=== PATIENT | female | born 1970 | race Hispanic/Latino ===

== ENCOUNTER 2016-09-24 08:25 | Emergency (ER) | payer OTHER ==
[2016-09-24] MEDS ORDERED: ALBUTEROL SULFATE/IPRATROPIUM 3 ML NEBU IH ONE ×2 (09:02→09:10)
[2016-09-24] MEDS ORDERED: ALBUTEROL SULFATE 2.5 MG/0.5 ML VIAL.NEB IH ONE (09:04)
[2016-09-24 09:19] LABS: Hematocrit 44.4 % (37.0-47.0); Hemoglobin 15.2 gm/dL (12.5-16.0); Mean Cell Volume 83.8 fl (78-100); Mean Corpuscular Hemoglobin 28.7 pg (27-31); Mean Corpuscular Hgb Conc 34.2 g/dl (32-36); Mean Platelet Volume 9.2 fl (6.0-9.5); Neutrophil % 66.6 % (42-75.0); Platelet Count 414 K/mm3 (150-450); White Blood Count 10.5 K/mm3 (4.0-10.5)
--- OUTSIDE RECORDS SUMMARY | 2016-09-24 09:22 | XMS REPORT | Continuity of Care Document ---
:1970 Author Organization [facility] ([facility] Address [address] [place] [address] Phone [phone] Care Team Providers Name Role Phone Amanda Balderrama Primary Care Provider [phone] Source Comments This disclosure is being made pursuant to the Care Everywhere program, applicable federal and state laws, and may not contain all informaitonavailable regarding this patient.[facility] ([facility]) Active Allergies and Adverse Reactions No Known Allergies Current Medications Prescription Sig. Disp. Refills Start Date End Date Status amLODIPine 10 mg Take 10 mg by Active tablet mouth daily. budesonide-formoter Use 2 Puffs by Active ol (SYMBICORT) inhalation 2 80-4.5 times daily as mcg/Actuation needed. inhaler albuterol 90 Use 2 Puffs by Active mcg/Actuation inhalation inhaler every 6 hours as needed. LYZA 0.35 mg tablet 1 tablet daily. 06/13/2015 Active ciprofloxacin-dexam Instill 3 Drops 7.5 mL 0 11/07/2015 Active ethasone (CIPRODEX) into left ear 2 0.3-0.1 % otic times daily. suspension mycophenolate Take 3 tablets 120 tablet 11 06/20/2016 Active mofetil 500 mg (1,500 mg tablet total) by mouth 2 times daily. esomeprazole 40 mg Take 1 capsule 30 capsule 11 08/02/2016 Active EC capsule (40 mg total) by mouth daily. pantoprazole 20 mg Take 1 tablet 30 tablet 11 08/07/2016 Active EC tablet (20 mg total) by mouth daily. levoFLOXacin 500 mg Take 1 tablet 10 tablet 0 09/06/2016 Active tablet (500 mg total) by mouth daily. losartan 100 mg Take 100 mg by Discontinued tablet mouth daily. 7 Active Problems Problem Noted Date CAMILO positive 06/23/2015 Hypertension 05/23/2015 Obesity (BMI 30.0-34.9) 05/23/2015 ILD (interstitial lung disease) 05/23/2015 Most Recent Encounters Date Type Specialty Providers Description 09/16/2016 Telephone Maia Kumar, Chief Comp: Return Call [facility] 09/06/2016 [facility] Respiratory MasonSlick Michele, Dx: Shortness of breath Encounter Therapy Rand Posey MD [R06.02] (Primary Dx) Default, Other Billg - Defo 09/06/2016 Orders Only Maia Kumar, Dx: Pneumonia of both [employer] lower lobes due to infectious organism (Primary Dx) 09/05/2016 Telephone Maia Kumar, Chief Comp: Discuss [employer]OR Test Results 09/05/2016 Telephone Maia Kumar, Chief Comp: Discuss [employer] INS[employer]OR Test Results 09/05/2016 Telephone Maia Kumar, Chief Comp: Discuss [employer]OR Test Results 09/03/2016 Hospital Radiology Subj: Upcoming Appt Encounter Reminder 09/03/2016 Office Visit Pathology Maia Oropeza, Dx: On Cellcept therapy [employer] Lab Services, p 09/03/2016 Office Visit Darwin Urban Dx: ILD (interstitial MD Janice lung disease) (Primary Maia Oropeza, Dx) [employer]OR 09/03/2016 Telephone Maia Kumar, Chief Comp: Discuss [employer] INS[employer]OR Test Results 09/03/2016 Telephone Maia Kumar, Chief Comp: Need Prior [employer] INSPECTOR Authorization 09/03/2016 Telephone Maia Kumar G[employer]ING INSPECTOR 08/07/2016 Orders Only Maia Kumar, Dx: Gastroesophageal [employer] reflux disease, esophagitis presence not specified (Primary Dx) 08/05/2016 Telephone Maia Kumar Chief Comp: Other [employer] INSPECTOR 08/05/2016 Orders/Notes Maia Kumar, Dx: Gastroesophageal [employer]OR reflux disease, esophagitis presence not specified (Primary Dx) 08/05/2016 Telephone Darwin Urban, Chief Comp: Need Prior MD Janice Authorization 07/29/2016 Telephone [facility] Durairaj, Dx: ILD (interstitial Janice, MD lung disease) (Primary Dx) Immunizations Name Dates Previously Given Next Due Influenza, PF 02/21/2016 Pneumococcal Conjugate, PCV13 (Prevnar 13) 09/03/2016 Social History Tobacco Use Types Packs/Day Years Used Date Never Smoker Smokeless Tobacco: Never Used Last Filed Vital Signs Vital Sign Reading Time Taken Blood Pressure 97/70 09/06/2016 11:45 AM CDT Pulse 90 09/06/2016 11:45 AM CDT Temperature 37.4 C (99.3 F) 09/03/2016 1:36 PM CDT Respiratory Rate 16 09/03/2016 1:36 PM CDT Height 1.499 m (4' 11.02") 09/06/2016 9:28 AM CDT Weight 67 kg (147 lb 11.3 oz) 09/06/2016 9:28 AM CDT Body Mass Index 29.82 09/06/2016 9:28 AM CDT Oxygen Saturation 97% 09/06/2016 11:45 AM CDT Plan of Care Date Type Specialty Providers Description 10/04/2016 Appointment Respiratory Therapy Default, Other Billg Subj: Appointment - Defo Rescheduled [address] [place] [address] [phone] (Fax) 10/04/2016 Appointment Med Pulmonary Janice Urban MD [address] [place] [address] [phone] (Fax) Subj: Appointment Maia Oropeza ARNP [address] [place] [address] [phone] (Fax) Rescheduled 12/09/2016 Appointment Med Rheumatology Eduarda Wilkerson MD Subj: Appointment [address] [place] [address] [phone] (Fax) Health Maintenance Due Date Last Done Comments Hepatitis B Vaccine (1 of 3 - Primary Series) 1970 Tdap Vaccine 1981 Lipid Disorder Screening 1988 MMR Vaccine 1988 Td Vaccine 1988 Cervical Cancer Screening 2000 Mammogram 2010 Influenza Vaccine: Seasonal Completed 02/21/2016 Results from Last 3 Months CYTOLOGY NON-SENIOR SSIS DEVELOPER EXAM (09/06/2016 10:24 AM) Component Value Range Case Report Non-Bathroom Tiling Professional Cytopathology Case: [id number] Authorizing Provider:Keisha Banuelos MD Collected: 09/06/2016 10:24 AM Ordering Location: Pulmonary Diagnosis andRebouchraived: 09/06/2016 01:46 PM Intervention Pathologist: Jhon Barahona MD Specimen:Bronchoaveolar lavage Interpretation Bronchoalveolar Lavage (BAL):Pneumocytes and pulmonary macrophages. No viral inclusions seen. No fungal organisms seen on pap stain. No tumor cells identified I have personally reviewed this case and edited the report as necessary. Specimen Description 3 mL cloudy fluid Specimen Other - Bronchoaveolar lavage HISTOPLASMA ANTIGEN, BAL FLUID (09/06/2016 10:24 AM) Component Value Range Histoplasma Ag, BAL None Detected None Detected Specimen Bronchial Specimen Narrative Reference interval:None Detected Results reported as ng/mL in 0.4-19 ng/mL range Results above the limit of detection but below 0.4 ng/mL are reported as "Positive, Below the Limit of Quantification" Results above 19 ng/mL are reported as "Positive, Above the Limit of Quantification" This test was developed and its performance characteristics determined by [employer].It has not been cleared or approved by the FDA, however, FDA clearance or approval is not currentlyrequired for clinical use.The results are not intended to be used as the sole means for clinical diagnosis or patient management decisions. ASPERGILLUS GALACTOMANNAN ANTIGEN - BAL FLUID (09/06/2016 10:24 AM) Component Value Range Aspergillus Ag, BAL <0.500Comment: <0.5 index ADDITIONAL INFORMATION This is a qualitative test and the resulted index value is not indicative of disease severity.Serial testing is recommended for patients at high risk for invasive aspergillosis. Specimen Bronchial Specimen Narrative Test Performed by: [facility] - [address] [address] PNEUMOCYSTIS (PCP) ANTIGEN, DFA (09/06/2016 10:24 AM) Component Value Range Pneumocystis jirovecii (carinii) Antigen Not Detected Not Detected Specimen Culture - Bronchoaveolar lavage NOCARDIA CULTURE (09/06/2016 10:24 AM) Component Value Range Nocardia Culture Growth No nocardia isolated Specimen Culture - Bronchoaveolar lavage RESPIRATORY VIRUS PCR (09/06/2016 10:24 AM) Component Value Range Adenovirus Not Detected Not Detected Human [place]-Pneumovirus Not Detected Not Detected Influenza A Not Detected Not Detected Influenza B Not Detected Not detected H1N1 Influenza Not Detected Not Detected Parainfluenza 1 Virus Not Detected Not Detected Parainfluenza 2 Virus Not Detected Not Detected Parainfluenza 3 Virus Not Detected Not detected RSV A Not Detected Not Detected RSV B Not Detected Not Detected Specimen Other - Bronchoaveolar lavage Narrative Test Methodology:PCR amplification The performance characteristics of this test were determined by the [facility].It has not been cleared or approved by the U.S. Food and DrugAdministration (FDA). The FDA has determined that such clearance or approval is not necessary.This test is for clinical purposes.It should not be regarded as investigational or for research. The laboratory is certified under the Clinical Laboratory Improvement Amendments of 1988 (CLIA) as qualified to perform high complexity clinical laboratory testing. QUANTITATIVE AEROBIC CULTURE (09/06/2016 10:24 AM) Component Value Range Quantitative Aerobic Growth Mixed Valery (Oral)(A) Stain No organisms observed Stain Few PMN's Stain Cytospun preparation Specimen Culture - Bronchoaveolar lavage DIFFERENTIAL (09/03/2016 2:51 PM) Component Value Range % Neutrophils-Auto Diff 76.4 % Neutrophils-Auto Diff 04975(H) 5773-2699 /MM3 % Lymphocytes-Auto Diff 14.9 % Lymphocytes-Auto Diff 2630 875-3300 /MM3 % Monocytes-Auto Diff 6.3 % Monocytes-Auto Diff 1110(H) 130-860 /MM3 % Eosinophils-Auto Diff 1.5 % Eosinophils-Auto Diff 270 40-390 /MM3 % Basophils 0.3 % Basophils-Auto Diff 60 10-136 /MM3 % Immature Granulocytes-Auto Diff 0.6 % Immature Granulocytes-Auto Diff 100 /MM3 Specimen Whole Blood CBC (COMPLETE BLOOD COUNT) (09/03/2016 2:51 PM) Component Value Range WBC Count 17.6(H) 3.7-10.5 K/MM3 RBC Count 5.51(H) 4.00-5.20 M/MM3 Hemoglobin 16.1(H) 11.9-15.5 g/dL Hematocrit 46 35-47 % MCV (Mean Corpuscular Volume) 84 82-99 FL MCH (Mean Corpuscular Hemoglobin) 29 25-35 PG MCHC (Mean Corpuscular Hemoglobin Concentration) 35 32-36 % Platelet Count 447(H) 150-400 K/MM3 MPV (Mean Platelet Volume) 9.6 9.4-12.3 FL RBC Dist Width-STD 39.8 36.4-46.3 FL RBC Distrib Width 13.1 9.0-14.5 % Nucleated RBC 0 /100 WBC Specimen Whole Blood CHLORIDE (09/03/2016 2:51 PM) Component Value Range Chloride 97 95-107 mEq/L Specimen Blood BLOOD UREA NITROGEN (09/03/2016 2:51 PM) Component Value Range BUN 13 10-20 mg/dL Specimen Blood SODIUM (09/03/2016 2:51 PM) Component Value Range Sodium 137 135-145 mEq/L Specimen Blood POTASSIUM (09/03/2016 2:51 PM) Component Value Range Potassium 4.0 3.5-5.0 mEq/L Specimen Blood CO2 (09/03/2016 2:51 PM) Component Value Range CO2 26 22-29 mEq/L Anion Gap 14 <17 mEq/L Specimen Blood CALCIUM (09/03/2016 2:51 PM) Component Value Range Calcium 9.5 8.5-10.5 mg/dL Specimen Blood CBC WITH DIFFERENTIAL (09/03/2016 2:51 PM) Specimen Whole Blood Narrative The following orders were created for panel order CBC WITH DIFFERENTIAL. Procedure Abnormality Status --------- ------ CBC (COMPLETE BLOOD COUNT)[[id number]] AbnormalFinal result DIFFERENTIAL[[id number]] AbnormalFinal result Please view results for these tests on the individual orders. CREATININE (09/03/2016 2:51 PM) Component Value Range Creatinine 0.6Comment: 0.5-1.0 mg/dL Creatinine switched to enzymatic method on 08/21/2010.GFR equation switched to IDMS-traceable MDRD equation on 08/21/2010. Calculated GFR values are not valid in clinical settings where serum creatinine is changing. Calculated GFR >90 >60 mL/min/1.73 m2 Specimen Blood LIVER PANEL (09/03/2016 2:51 PM) Component Value Range Bilirubin Total 0.4 <=1.2 mg/dL AST 18Comment: 0-32 U/L Adult reference ranges updated on 03/09/13 at 830am ALT 11Comment: 0-33 U/L The upper limit of normal for alanine aminotransferase (ALT) reference ranges for adults is controversial with some authorities recommending limit as low as 30 U/L for males and 19 U/L for females. Th ere is increased incidence of subclinical liver disease (e.g., early steatohepatitis) in patients with ALT values in the range of 31-41 U/L for males and 20-33 U/L for females. ALT values should alway s be interpreted in conjunction with clinical history, physical examination findings, and, if applicable, data from other diagnostic tests. ALP 76 35-104 U/L GGT 33 5-36 U/L Albumin 4.3 3.4-4.8 g/dL Total Protein 8.4(H) 6.0-8.0 g/dL Specimen Blood
--- OUTSIDE RECORDS SUMMARY | 2016-09-24 09:22 | XMS REPORT | Summary of Care ---
:1970 Author Organization [facility] Address [address] [place] [address]- Care Team Providers Name Role Phone Amanda Balderrama Primary Care Physician Encounter Date(s): 06/05/16 - 06/05/16 [facility] [address] [place], [place] [address] Discharge Disposition: Discharged to Home or Self Care Attending Physician: Janice Urban MD Admitting Physician: Janice Urban MD Vital Signs No data available for this section Problem List No data available for this section Allergies, Adverse Reactions, Alerts No Known Medication Allergies Medications albuterol CFC free 90 mcg/inh inhalation aerosol 2 puff(s), Inhale, QID, PRN for wheezing, # 1 EA, 3 Refill(s), Start Date: 09/01 16:53:33 CDT, Pharmacy: [facility] [place], [place] Start Date: 09/01/14 Stop Date: 12/30/14 Status: Orderedalbuterol CFC free 90 mcg/inh inhalation aerosol 2 puff(s), Inhale, QID, PRN for wheezing, X 30 days, # 1 EA, 3 Refill(s), Start Date: 09/01/14 16:41:00 CDT Start Date: 09/01/14 Stop Date: 09/01/14 Status: CompletedamLODIPine 10 mg oral tablet 1 tab(s), Oral, Daily, 0 Refill(s), Start Date: 09/01/14 15:23:00 CDT Start Date: 09/01/14 Status: Ordereddoxycycline hyclate 100 mg oral tablet 1 tab(s), Oral, BID, # 14 tab(s), 0 Refill(s), Start Date: 09/28/15 16:07:00 CDT , Pharmacy: [facility], [place] Start Date: 09/28/15 Stop Date: 10/05/15 Status: Orderedmycophenolate mofetil 500 mg oral tablet 1 tab(s), Oral, Daily, 0 Refill(s), Start Date: 09/28/15 15:31:00 CDT Start Date: 09/28/15 Status: OrderedpredniSONE 20 mg oral tablet 1 tab(s), Oral, Daily, # 30 tab(s), 1 Refill(s), Start Date: 12/28/14 16:49:00 CDT, Pharmacy: [facility], [place] Start Date: 12/28/14 Stop Date: 03/02/15 Status: CompletedpredniSONE 20 mg oral tablet 1 tab(s), Oral, Daily, # 45 tab(s), 1 Refill(s), Start Date: 11/02/14 16:54:00 CDT, Pharmacy: [facility], [place] Start Date: 11/02/14 Stop Date: 12/28/14 Status: CompletedpredniSONE 20 mg oral tablet 1.5 tab(s), Oral, Daily, # 45 tab(s), 1 Refill(s), Start Date: 12/07/14 16:39: 00 CDT, Pharmacy: [facility], [place] Start Date: 12/07/14 Stop Date: 03/02/15 Status: CompletedSymbicort 80 mcg-4.5 mcg/inh inhalation aerosol 2 puff(s), Inhale, BID, # 10 gm, 0 Refill(s), Start Date: 02/01/15 9:58:02 CDT, samples given to patient (Rx), [id number], 02/12/16 Start Date: 02/01/15 Stop Date: 05/19/15 Status: CompletedSymbicort 80 mcg-4.5 mcg/inh inhalation aerosol 2 puff(s), Inhale, BID, # 10 gm, 0 Refill(s), Start Date: 11/02/14 16:54:00 CDT , Pharmacy: [facility], [place] Start Date: 11/02/14 Stop Date: 02/01/15 Status: CompletedSymbicort 80 mcg-4.5 mcg/inh inhalation aerosol 2 puff(s), Inhale, BID, # 1 EA, 5 Refill(s), Start Date: 05/19/15 16:37:14 PARENT TRAINER, Pharmacy: [facility] [place], [id number], 02/12/16 Start Date: 05/19/15 Stop Date: 11/15/15 Status: Ordered Results No data available for this section Immunizations Vaccine Date Refusal Reason influenza virus vaccine, inactivated1, 2 03/02/15 1Result Comment: Flu vaccine given IM to left deltoid. Tolerated well with no adverse reactions noted.2Early/Late Reason: Other : Procedures Procedure Date Related Diagnosis Body Site Flexible Bronchoscopy1 10/04/14 Flexible Bronchoscopy2 09/06/14 delivery left arm surgery 1auto-populated from documented surgical [id number] from documented surgical case Social History No data available for this section Assessment and Plan No data available for this section
[2016-09-24 09:33] LABS: Albumin * 3.5 gm/dl (3.4-5.0); Anion Gap 18.3 mmol/L (6.8-13.8); BUN/Creatinine Ratio 20.6 (9.0-21.6); Bilirubin, Total 0.5 mg/dL (0.0-1.1); Ca. Corrected For Albumin 9.1 mg/dL (8.4-10.2); Carbon Dioxide 23.6 mmol/L (24-32.6); Potassium 3.9 mmol/L (3.4-4.6); Total Protein 8.6 gm/dL (6.2-8.2)
[2016-09-24 10:42] VITALS: BP 119/86
--- NOTE | 2016-09-24 10:54 | ERNOTE ---
Date of Service: 09/24/16 Time Seen by Provider: 09/24/16 08:59 Stated Complaint: COUGH HX PNEUMONIA Presenting Symptoms:: cough Source: patient Exam Limitations: no limitations Immunizations: IMMUNIZATION HX Immunizations Up to Date No History of Influenza Vaccine Yes Hx Pneumococcal Vaccination Yes Allergies/Adverse Reactions: Allergies No Known Allergies Allergy (Unverified 09/23/12 15:53) Home Medications: HOME MEDICATIONS amLODIPine BESYLATE [Norvasc] 10 mg PO DAILY 09/23/12 [Last Taken Unknown] Albuterol Sulfate [Proair Respiclick] 90 mcg IH PRN PRN 06/06/15 [Last Taken Unknown] Budesonide/Formoterol Fumarate [Symbicort 80-4.5 Mcg Inhaler] 80 mg IH BID 06/06 [Last Taken Unknown] Losartan Potassium [Cozaar] 100 mg PO DAILY 06/06/15 [Last Taken Unknown] Benzonatate [Tessalon] 100 mg PO TID PRN #15 capsule 09/24/16 [Last Taken Unknown] - History of Present Ilness Narrative: Patient presents to the ED for cough. She does answer some questions but her translates for her. Her main concern is cough. She had a recent pneumonia and was treated with Levaquin. She has still had cough and was told to be re-checked if her cough continued. No fever or sputum production. She uses home O2 at night and prn. She is not on O2 at this time. She denies CP or abdominal pain. Timing: constant Frequency/Possible Cause: Reports: other - recent pneumonia Modifying Factors - Improves: Reports: nothing Modifying Factors - Worsens: Reports: nothing Associated Symptoms: Denies: chest pain/soreness, wheezing, nasal congestion, fever/chills Prior Treatment: Reports: treated by physician Review of Systems - Review of Systems Constitutional: Absent: fever Respiratory: Present: cough Cardiology: Absent: chest pain Gastrointestinal/Abdominal: Absent: abdominal pain Skin: Absent: rash Neurological: Absent: weakness - Patient's Past Medical History Patient History - Medical: Other Patient History - Cardiac/Respiratory: Hypertension Patient History - Cancer: No Hx of Cancer Patient History - Surgical Procedures: Other LMP (females 10-50): last week - Family History Mother Family History - Medical: No pertinent hx Father Family History - Medical: Other - Social History Living Situations: spouse Abuse History: No History of abuse Psych History: No pertinent hx Smoking Status: Never smoker Have you smoked in the past 12 months: No Do you dip or chew tobacco: No Alcohol Use: none Drug Use: none - Immunizations Immunizations Up to Date: No Hx Pneumococcal Vaccination: Yes History of Influenza Vaccine: Yes Physical Exam - Physical Exam General Appearance: Present: alert, no apparent distress, other - Speaks in full sentences, no distress, well hydrated. occasional cough noted. Eye Exam: Normal inspection: bilateral, PERRL: bilateral Ears, Nose, Throat: Present: normal ENT inspection. Absent: pharyngeal erythema , dry mucous membranes Neck: Present: normal inspection Respiratory: Present: no respiratory distress, no accessory muscle use, other - faint rare wheeze left upper lobe. no distress Cardiovascular/Chest: Present: regular rate, rhythm Gastrointestinal/Abdominal: Present: normal bowel sounds, nontender, soft Back Exam: Present: normal range of motion Extremity Exam: Present: normal inspection. Absent: calf tenderness Neurological Exam: Present: alert, normal mood/affect, no motor/sensory deficits Skin Exam: Absent: skin rash ED Progress - Results and Orders Patient's Lab Results:: I have reviewed the patient's lab results. - Vital Signs Patient's Vital Signs:: I have reviewed the patient's vital signs. Vital Signs: Vital Signs 09/24/16 09/24/16 09/24/16 08:47 09:02 09:10 Temperature 36.7 C Pulse Rate 84 85 84 Respiratory 28 H 24 H 20 Rate Blood Pressure 122/86 111/79 O2 Sat by Pulse 91 93 94 Oximetry 09/24/16 09/24/16 09/24/16 09:20 09:34 09:54 Temperature 36.7 C 36.9 C Pulse Rate 92 86 89 Respiratory 25 H 25 H 28 H Rate Blood Pressure 107/70 130/76 O2 Sat by Pulse 93 91 Oximetry 09/24/16 10:24 Temperature Pulse Rate 85 Respiratory 20 Rate Blood Pressure 118/72 O2 Sat by Pulse 93 Oximetry - X-Ray X-Ray #1 X-Ray: chest Interpretation: Interp. by me X-ray Comments: I reviewed official CXR report - Progress/Reassessment Chief Complaint: Cough Progress Note-Subjective: 09/24/16 10:49 CXR findings subtle and likely represent sequelae of her recent pneumonia that was treated given no fever and normal WBC. I do not feel re-starting ABx is necessary at this time. She is in no distress and wishing to go home. I will give her cough medication. Nothign at this time would suggest ACS, PE or aortic dissection. No other life threats found. I discussed warning signs and reasons to return as well as the need for close f/u. Departure - Departure Clinical Impression: Cough Disposition: Home self-care Condition: Stable Instructions: Cough, Adult, [id number] Additional Instructions: Continue current medications. Follow-up with your doctor within 3 days for a re -check. Return here for fever, trouble breathing or if your condition worsens or changes in any way. Referrals: Amanda Balderrama MD [Primary Care Provider] - Prescriptions: Benzonatate [Tessalon] 100 mg PO TID PRN #15 capsule PRN Reason: Cough
== END 2016-09-24 10:56 | disposition home or self-care (01) ==
LOC: ER 08:25
DX: R05 Cough (principal)